=== PATIENT | male | born 1950 | race Caucasian/White ===

== ENCOUNTER 2020-09-30 10:05 | Observation (INO) ==
[2020-09-30 12:08] LABS: ABS Basophils 0.1 10^3/ul (0-0.2); ABS Eosinophils 0.3 10^3/ul (0-0.6); ABS Lymphocytes 1.2 10^3/ul (1.0-4.8); ABS Monocytes 0.9 10^3/ul (0-0.8); ABS Neutrophils 7.3 10^3/ul (1.5-7.7); Eosinophil % 2.7 %; Hematocrit 38 % (42-52); Hemoglobin 13.1 g/dL (14.0-18.0); Lymphocyte % 12.2 %; Mean Corpuscular HGB Conc 34 g/dL (31-36); Mean Corpuscular Hemoglobin 29 pg (27-31); Mean Corpuscular Volume 84 fL (80-94); Mean Platelet Volume 8.2 fL (7.4-10.4); Platelet Count 195 10^3/uL (150-450); Red Blood Count 4.55 10^6 /uL (4.18-5.48); Red Cell Distribution Width 15 % (10-15); White Blood Count 9.6 10^3/uL (3.5-10.8)
[2020-09-30 12:27] LABS: ALT 15 U/L (7-52); Albumin 3.8 g/dL (3.2-5.2); Alkaline Phosphatase 61 U/L (35-149); Blood Urea Nitrogen 20 mg/dL (6-24); C Reactive Protein 118.47 mg/L (<8.01); CO2 Carbon Dioxide 28 mmol/L (22-32); Calcium 9.3 mg/dL (8.6-10.3); Chloride 101 mmol/L (101-111); EGFR African American 80.5 (>60); EGFR Non-African American 66.5 (>60); Globulin 3.8 g/dL (2-4); Glucose 133 mg/dL (70-100); Sodium 136 mmol/L (135-145); Total Protein 7.6 g/dL (6.4-8.9)
[2020-09-30 12:31] LABS: Troponin I 0.05 ng/mL (<0.03)
[2020-09-30 12:57] LABS: Activated Partial Thrombo Time 29.6 seconds (26.0-38.0); INR 1.23 (0.86-1.15)
[2020-09-30 13:05] LABS: AST 17 U/L (13-39); Anion Gap 7 mmol/L (2-11); Potassium 4.3 mmol/L (3.5-5.0)
[2020-09-30] MEDS ORDERED: Vancomycin 1,500 MG in NS 0.9% 250 ml 250 ML IVPB ONE (13:46)
[2020-09-30] MEDS ORDERED: NS 0.9% 250 ml 250 ML ONE (14:04)
[2020-09-30] MEDS ORDERED: Ondansetron 4 mg VIAL 2 MG/ML 2 ml VIAL IV PRN (14:56)
[2020-09-30] MEDS ORDERED: Vancomycin per Pharmacy 1 EA NOTE FOLLOW UP SCH (15:00)
[2020-09-30] MEDS ORDERED: Dextrose 50% Syringe 50 ml 25 GM/50 ML SYRINGE IV PUSH PRN (15:29)
[2020-09-30 17:07] LABS: Troponin I 0.04 ng/mL (<0.03)
[2020-09-30] MEDS ORDERED: Vancomycin 500 MG in NS 0.9% 250 ML IVPB ONE (17:30)
[2020-09-30] MEDS ORDERED: Gadoteridol (CONTRAST) 279.3 MG/ML 10 ML IV ONE (20:08)
[2020-09-30] MEDS: Cefepime 2 GM in Dextrose 2 GM/50 ML BAG IV SCH (21:23)
[2020-10-01 06:25] LABS: ABS Basophils 0.1 10^3/ul (0-0.2); ABS Eosinophils 0.3 10^3/ul (0-0.6); ABS Lymphocytes 1.3 10^3/ul (1.0-4.8); ABS Monocytes 0.6 10^3/ul (0-0.8); ABS Neutrophils 4.7 10^3/ul (1.5-7.7); Eosinophil % 4.6 %; Hematocrit 34 % (42-52); Hemoglobin 11.6 g/dL (14.0-18.0); Lymphocyte % 18.2 %; Mean Corpuscular HGB Conc 34 g/dL (31-36); Mean Corpuscular Hemoglobin 29 pg (27-31); Mean Corpuscular Volume 84 fL (80-94); Mean Platelet Volume 7.9 fL (7.4-10.4); Platelet Count 160 10^3/uL (150-450); Red Blood Count 4.03 10^6 /uL (4.18-5.48); Red Cell Distribution Width 14 % (10-15); White Blood Count 6.9 10^3/uL (3.5-10.8)
[2020-10-01] MEDS: Vancomycin 1,500 MG in NS 0.9% 250 ml 250 ML IVPB SCH ×2 (06:32→20:19)
[2020-10-01] MEDS: Cefepime 2 GM in Dextrose 2 GM/50 ML BAG IV SCH ×2 (09:28→23:00)
[2020-10-01] MEDS: Enoxaparin 40 MG/0.4 ML SYR SUBCUT SCH (15:53)
[2020-10-02] MEDS ORDERED: Vancomycin Trough Check NOTE FOLLOW UP ONE (06:00)
[2020-10-02 06:10] LABS: ABS Basophils 0.1 10^3/ul (0-0.2); ABS Eosinophils 0.3 10^3/ul (0-0.6); ABS Lymphocytes 1.5 10^3/ul (1.0-4.8); ABS Monocytes 0.5 10^3/ul (0-0.8); ABS Neutrophils 4.3 10^3/ul (1.5-7.7); Eosinophil % 4.7 %; Hematocrit 34 % (42-52); Hemoglobin 11.7 g/dL (14.0-18.0); Mean Corpuscular HGB Conc 35 g/dL (31-36); Mean Corpuscular Hemoglobin 29 pg (27-31); Mean Corpuscular Volume 83 fL (80-94); Mean Platelet Volume 7.6 fL (7.4-10.4); Platelet Count 166 10^3/uL (150-450); Red Blood Count 4.06 10^6 /uL (4.18-5.48); Red Cell Distribution Width 14 % (10-15); White Blood Count 6.7 10^3/uL (3.5-10.8)
[2020-10-02 06:28] LABS: Calcium 9.1 mg/dL (8.6-10.3); EGFR Non-African American 69.4 (>60); Potassium 4.8 mmol/L (3.5-5.0)
[2020-10-02 07:06] LABS: Vancomycin Trough 15.4 mcg/mL
[2020-10-02 08:07] VITALS: BP 131/54
[2020-10-02] MEDS: Vancomycin 1,500 MG in NS 0.9% 250 ml 250 ML IVPB SCH (08:43)
[2020-10-02] MEDS: Enoxaparin 40 MG/0.4 ML SYR SUBCUT SCH (08:43)
[2020-10-02] MEDS ORDERED: Insulin GLARGINE 100 un/ml 10 ml VIAL SUBCUT SCH (09:00)
[2020-10-02] MEDS ORDERED: Aspirin EC 81 mg TAB.EC (enteric coated) PO SCH (09:00)
[2020-10-02] MEDS: Cefepime 2 GM in Dextrose 2 GM/50 ML BAG IV SCH (12:28)
== END 2020-10-02 12:25 | disposition home or self-care (01) ==
LOC: ED 10:05 → MEDTELE 10:05
PROVIDERS: ADMIT Student in an Organized Health Care Education/Training Program; ATTEND Student in an Organized Health Care Education/Training Program